=== PATIENT | female | born 1995 | race Caucasian/White ===

== ENCOUNTER 2019-06-30 02:52 | Emergency (ER) | payer OTHER, SELFPAY ==
[2019-06-30 03:06] VITALS: BP 126/68; PULSE 104
[2019-06-30] MEDS ORDERED: diphenhydrAMINE 50 MG/ML SDV IVPUSH ONE (03:10)
[2019-06-30] MEDS ORDERED: methylPREDNISolone Sodium Succinate 125 MG/2 ML SDV IVPUSH ONE (03:10)
[2019-06-30] MEDS ORDERED: Ondansetron 4 MG/2 ML SDV IV ONE (03:10)
[2019-06-30] MEDS ORDERED: Sodium Chloride 0.9% 1,000 ML IV ONE (03:10)
[2019-06-30] MEDS ORDERED: EPINEPHrine 1 MG/1 ML Amp SUBCUT ONE (03:10)
--- NOTE | 2019-06-30 03:14 | EDM.PDOC ---
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 denies SOB, no hives - Related Data Allergies Allergy/AdvReac Type Severity Reaction Status Date / Time pineapple Allergy Difficulty Verified 06/30/19 03:32 Breathing Home Meds: Home Meds . [No Known Home Meds] 02/05/17 [History] Past Medical History - Past Health History Medical/Surgical History: Denies Medical/Surgical History - Infectious Disease History Infectious Disease History: Reports: Chicken Pox - Past Surgical History HEENT Surgical History: Reports: Myringotomy w Tube(s), Other (See Below) Other HEENT Surgeries/Procedures: Tubes in her ears 8 times GI Surgical History: Reports: Appendectomy Social & Family History - Family History Family Medical History: Noncontributory - Tobacco Use Smoking Status *Q: Never Smoker Second Hand Smoke Exposure: No - Caffeine Use Caffeine Use: Reports: Tea - Recreational Drug Use Recreational Drug Use: No ED ROS ALLERGIC REACTION - Review of Systems Review Of Systems: Comprehensive ROS is negative, except as noted in HPI. ED EXAM GENERAL NO PERIP PULSE - Physical Exam Exam: See Below Exam Limited By: No Limitations General Appearance: Alert, WD/WN, Anxious, Mild Distress, Moderate Distress Ears: Hearing Grossly Normal Throat/Mouth: Normal Voice, No Airway Compromise Head: Atraumatic Neck: Non-Tender, Full Range of Motion Respiratory/Chest: No Respiratory Distress, No Accessory Muscle Use, Rhonchi. No: Decreased Breath Sounds Cardiovascular: Regular Rate, Rhythm GI/Abdominal: Soft, Non-Tender Neurological: Alert, Oriented, Normal Cognition, Normal Gait, No Motor/Sensory Deficits Psychiatric: Anxious Skin Exam: Warm, Dry, Normal Color. No: Rash Lymphatic: No Adenopathy Course - Vital Signs Last Recorded V/S: Last Vital Signs Temp 37.1 C 06/30/19 03:01 Pulse 104 H 06/30/19 03:01 Resp 16 06/30/19 03:01 BP 126/68 06/30/19 03:01 Pulse Ox 100 06/30/19 03:01 - Orders/Labs/Meds Orders: Active Orders 24 hr Category Date Time Status Sodium Chloride 0.9% [Normal Saline] 1,000 ml Med 06/30/19 03:10 Active IV .BOLUS Medication Orders Sodium Chloride (Normal Saline) 1,000 mls @ 999 mls/hr IV .BOLUS ONE Stop: 06/30/19 04:10 Last Admin: 06/30/19 03:23 Dose: 999 mls/hr Meds: Medications Generic Name Dose Route Start Last Admin Trade Name Freq PRN Reason Stop Dose Admin Sodium Chloride 1,000 mls @ 999 mls/hr 06/30/19 03:10 06/30/19 03:23 Normal Saline IV 06/30/19 04:10 999 mls/hr .BOLUS ONE Administration Discontinued Medications Generic Name Dose Route Start Last Admin Trade Name Freq PRN Reason Stop Dose Admin Diphenhydramine HCl 25 mg 06/30/19 03:10 06/30/19 03:18 Benadryl IVPUSH 06/30/19 03:11 25 mg ONETIME ONE Administration Epinephrine HCl 0.3 mg 06/30/19 03:10 06/30/19 03:18 Adrenalin SUBCUT 06/30/19 03:11 0.3 mg ONETIME ONE Administration Methylprednisolone Sodium Succinate 125 mg 06/30/19 03:10 06/30/19 03:18 Solu-Medrol IVPUSH 06/30/19 03:11 125 mg ONETIME ONE Administration Ondansetron HCl 4 mg 06/30/19 03:10 06/30/19 03:23 Zofran IV 06/30/19 03:11 4 mg ONETIME ONE Administration - Re-Assessments/Exams Free Text/Narrative Re-Assessment/Exam: 06/30/19 03:49 re-exam; s/p IV Rx + IV = much better. no tingling no nausea Departure - Departure Time of Disposition: 03:49 Disposition: Home, Self-Care 01 Condition: Good Clinical Impression: Food allergy - Discharge Information Forms: ED Department Discharge Additional Instructions: 1) avoid pineapple 2) recheck as needed Sepsis Event Note - Evaluation Sepsis Screening Result: No Definite Risk - Focused Exam Vital Signs: Vital Signs Temp Pulse Resp BP Pulse Ox 06/30/19 03:01 37.1 C 104 H 16 126/68 100 Date Exam was Performed: 06/30/19 Time Exam was Performed: 03:49 - My Orders Last 24 Hours: My Active Orders 06/30/19 03:10 Sodium Chloride 0.9% [Normal Saline] 1,000 ml IV .BOLUS - Assessment/Plan Last 24 Hours: My Active Orders 06/30/19 03:10 Sodium Chloride 0.9% [Normal Saline] 1,000 ml IV .BOLUS
== END 2019-06-30 04:00 | disposition home or self-care (01) ==
LOC: DL.ED 02:52
DX: T78.1XXA Other adverse food reactions, not elsewhere classified, initial encounter (principal); R11.10 Vomiting, unspecified; Z91.018 Allergy to other foods
CPT/HCPCS: 96361; 96372; 96374; 96375; 99283; 99284; J0171; J1200; J2405; J2930; J7030